=== PATIENT | female | born 1945 | race Caucasian/White ===

== ENCOUNTER 2022-09-12 05:59 | Inpatient (IN) ==
--- NOTE | 2022-09-07 14:20 | Anesthesiology Consultation ---
Date of Service September 07, 2022 Assessment & Plan (1) Encounter for pre-operative examination: Chart Review Chart Review: Patient NOT seen in Pre Admission Testing COVID screening: Per PAT nursing assessment on 09/06/22, No known COVID-19 positive contacts or current COVID-19 related symptoms. Travel screen negative. Patient vaccinated for Covid. At surgeon discretion if preop Covid testing being done. Consults Requested Pending: - most recent PCP note (per chart review, pt was seen 08/2022), re: fasting glucose on preop labs: 111; pt 'prediabetic' per RN phone interview (no diabetic meds in med list). - most recent cardio note (per chart review, pt was seen for 'preop clearance' by cardio 06/2022). per chart review, this was already faxed for. History Surgery Operation Date: 09/12/22 13:25 Proposed Procedures p C3-C4 Anterior Cervical Discectomy and Fusion, Spinal Cord Monitoring - Kevin Schmitt, Height/Weight Height: 5 ft 7.75 in Weight: 105.687 kg Allergies Allergy/AdvReac Type Severity Reaction Status Date / Time acetaminophen [From Vicodin] AdvReac itching Verified 09/06/22 15:43 codeine AdvReac itching Verified 09/06/22 15:43 hydrocodone [From Vicodin] AdvReac itching Verified 09/06/22 15:43 Medications Home Medications Medication Instructions Recorded Confirmed Last Taken Bifidobacterium infantis 4 mg 4 mg PO QPM 09/06/22 09/06/22 Unknown capsule (Align) azelastine 137 mcg (0.1 %) nasal 2 spray intranasal BID 09/06/22 09/06/22 Unknown spray aerosol buspirone 5 mg tablet 5 mg PO BID PRN Anxiety 09/06/22 09/06/22 Unknown celecoxib 200 mg capsule (Celebrex) 200 mg PO QPM 09/06/22 09/06/22 Unknown cyanocobalamin (vitamin B-12) 1,000 mcg PO QAM 09/06/22 09/06/22 Unknown 1,000 mcg tablet (Vitamin B-12) epinastine 0.05 % eye drops 1 drp ophthalmic (eye) Q12H 09/06/22 09/06/22 Unknown famotidine 40 mg tablet 40 mg PO QAM 09/06/22 09/06/22 Unknown fluticasone propionate 50 2 inh inhalation QPM 09/06/22 09/06/22 Unknown mcg/actuation blister powder for inhalation hydrochlorothiazide 12.5 mg tablet 12.5 mg PO QAM 09/06/22 09/06/22 Unknown levothyroxine 100 mcg tablet 100 mcg PO QAM 09/06/22 09/06/22 Unknown loratadine 5 mg-pseudoephedrine ER 1 tab PO Q12H 09/06/22 09/06/22 Unknown 120 mg tablet,extended release,12hr (Claritin-D 12 Hour) lutein 1 cap PO QPM 09/06/22 09/06/22 Unknown montelukast 10 mg tablet 10 mg PO PM 09/06/22 09/06/22 Unknown multivitamin 1 tab PO QAM 09/06/22 09/06/22 Unknown oxybutynin chloride 10 mg 10 mg PO QPM 09/06/22 09/06/22 Unknown tablet,extended release 24 hr temazepam 15 mg capsule 15 mg PO HS PRN Insomnia 09/06/22 09/06/22 Unknown Past Medical History Medical History (Updated 09/07/22 @ 14:24 by Beatriz Mills PA-C) Abnormal EKG while hospitalized at [facility] following fall 01/2022 -- referred to [facility] (had recent echo, stress test and pulmonary function testing. final diagnosis?) Anxiety Alexis's cyst of knee Rt Endometriosis Fracture of lumbar spine hx GERD (gastroesophageal reflux disease) History of anesthesia reaction memory loss -- "unable to remember phone numbers" -- following D&C in 1980s per pt History of duodenal ulcer History of skin cancer HTN (hypertension) Hypothyroidism Menieres disease Mild to moderate hearing loss Osteoarthritis Overactive bladder Prediabetes Right bundle branch block Spinal stenosis Torn meniscus Rt knee Uterine fibroid Past Family History Family History Mother PONV (postoperative nausea and vomiting) Past Surgical History Surgical History History of arthroscopy of right knee History of bunionectomy of right great toe History of colonoscopy History of cystoscopy History of D&C History of esophagogastroduodenoscopy (EGD) History of Mohs micrographic surgery for skin cancer x4 STOP BANG Total 6 Social History Smoking Status: Never smoker Do You Dip or Chew Tobacco: No Hx Alcohol Use: Yes alcohol intake frequency: holidays/special occasions only Alcohol Intake Frequency Comment: "rarely" Hx Substance Use: No substance use type: does not use Lab Results Anesthesia Preop Results Results Anesthesia Widget: WBC 6.15 K/ul (4.8-10.8) 08/09/22 Hgb 14.0 g/dl (12.0-16.0) 08/09/22 Hct 41.3 % (37.0-47.0) 08/09/22 Plt 254 K/uL (130-400) 08/09/22 Na 140 mmol/L (136-145) 08/09/22 K 4.2 mmol/L (3.5-5.1) 08/09/22 Cl 105 mmol/L (98-107) 08/09/22 CO2 29 mmol/L (21-32) 08/09/22 BUN 15 mg/dl (6-23) 08/09/22 Creat 0.79 mg/dl (0.6-1.2) 08/09/22 Fasting Glucose 111 mg/dl (70-99) H 08/09/22 PT 10.9 Seconds (9.0-12.0) 08/09/22 PTT 27.1 Seconds (21.0-31.0) 08/09/22 INR 1.0 (0.9-1.1) 08/09/22 Urine Color Yellow 08/09/22 Urine Appearance Clear (Clear) 08/09/22 Urine pH 5.5 (4.5-7.5) 08/09/22 Urine Specific [place] 1.007 (1.000-1.030) 08/09/22 Urine Protein Negative (Negative) 08/09/22 Urine Glucose (UA) Negative (Negative) 08/09/22 Urine Ketones Negative (Negative) 08/09/22 Urine Blood Negative (Negative) 08/09/22 Urine Nitrite Negative (Negative) 08/09/22 Urine Bilirubin Negative (Negative) 08/09/22 Urine Urobilinogen Negative (Negative) 08/09/22 Urine Leukocyte Esterase Negative (Negative) 08/09/22 Blood Type O Positive 08/09/22 Antibody Screen NEGATIVE 08/09/22 Testing Electrocardiogram Date: 08/09/22 Findings: + NSR @ (82bpm) low voltage QRS. RBBB Chest X-Ray Date: 08/09/22 Findings: + NAD Echocardiogram Date: 05/29/22 EF: 55-60% LV Function: normal mild TR. Borderline pulm HTN (Est RVSP: 26-31mmHg) No DD. Stress Test Date: 05/29/22 Lexiscan Nuclear Stress Test: Based on EKG criteria, test is non-diagnostic. Based upon nuclear imaging findings, there is NO evidence of myocardial ischemia or infarction.
[2022-09-12] MEDS ORDERED: ceFAZolin 2000MG 2,000 MG/15 ML SYR IV SCH (06:00)
[2022-09-12] MEDS ORDERED: GABAPENTIN 300 MG CAP PO SCH (06:00)
[2022-09-12] MEDS ORDERED: ACETAMINOPHEN 500 MG TAB PO SCH (06:00)
[2022-09-12] MEDS ORDERED: CeleBREX 200 MG CAP PO SCH (06:00)
[2022-09-12] MEDS ORDERED: LR 15ML/HR IV SCH (06:00)
[2022-09-12] MEDS ORDERED: MIDAZOLAM HCL 1 MG/ML 2ML VIAL ONE (07:06)
[2022-09-12] MEDS ORDERED: PROPOFOL IV EMULSION 10 MG/ML 20 ML VIAL IV ONE (07:06)
[2022-09-12] MEDS ORDERED: fentaNYL citrate PF 100 MCG/2 ML VIAL ONE (07:06)
[2022-09-12] MEDS ORDERED: LIDOCAINE 2% MPF LOCAL 5 ML VIAL INFIL ONE (07:06)
[2022-09-12] MEDS ORDERED: ONDANSETRON INJ 2 MG/ML 2 ML VIAL ONE (07:06)
[2022-09-12] MEDS ORDERED: DEXAMETHASONE SOD INJ 4 MG/ML VIAL ONE (07:06)
[2022-09-12] MEDS ORDERED: ROCURONIUM BROMIDE 10 MG/ML 5 ML VIAL IV ONE (07:06)
[2022-09-12] MEDS ORDERED: ceFAZolin 330 MG/ML 1 GM VIAL ONE (07:18)
--- NOTE | 2022-09-12 07:38 | History & Physical Bridge Note ---
Date of Service September 12, 2022 History & Physical Bridge Note I have examined the patient, reviewed the History & Physical and in the interval since the performance of the History & Physical I have noted the following changes of clinical significance: no changes noted
--- NOTE | 2022-09-12 07:39 | History & Physical Report ---
Date of Service September 12, 2022 Assessment & Plan (1) Cervical stenosis of spinal canal: Plan: C3-C4 anterior cervical discectomy and fusion History of Present Illness Chief Complaint: Neck and arm pain Primary Care Provider: Melina Floyd DO This is a 77-year-old female who presents with worsening neck and arm symptoms after failing course of nonoperative care she is here for surgical invention. Allergies Allergy/AdvReac Type Severity Reaction Status Date / Time acetaminophen [From Vicodin] AdvReac itching Verified 09/12/22 06:43 codeine AdvReac itching Verified 09/12/22 06:43 hydrocodone [From Vicodin] AdvReac itching Verified 09/12/22 06:43 Home Medications Medication Instructions Recorded Confirmed Type Bifidobacterium infantis 4 mg 4 mg PO QPM 09/06/22 09/12/22 History capsule (Align) azelastine 137 mcg (0.1 %) nasal 2 spray intranasal BID 09/06/22 09/12/22 History spray aerosol buspirone 5 mg tablet 5 mg PO BID PRN Anxiety 09/06/22 09/12/22 History celecoxib 200 mg capsule (Celebrex) 200 mg PO QPM 09/06/22 09/12/22 History cyanocobalamin (vitamin B-12) 1,000 mcg PO QAM 09/06/22 09/12/22 History 1,000 mcg tablet (Vitamin B-12) epinastine 0.05 % eye drops 1 drp ophthalmic (eye) Q12H 09/06/22 09/12/22 History famotidine 40 mg tablet 40 mg PO QAM 09/06/22 09/12/22 History fluticasone propionate 50 2 inh inhalation QPM 09/06/22 09/12/22 History mcg/actuation blister powder for inhalation hydrochlorothiazide 12.5 mg tablet 12.5 mg PO QAM 09/06/22 09/12/22 History levothyroxine 100 mcg tablet 100 mcg PO QAM 09/06/22 09/12/22 History loratadine 5 mg-pseudoephedrine ER 1 tab PO Q12H 09/06/22 09/12/22 History 120 mg tablet,extended release,12hr (Claritin-D 12 Hour) lutein 1 cap PO QPM 09/06/22 09/12/22 History montelukast 10 mg tablet 10 mg PO PM 09/06/22 09/12/22 History multivitamin 1 tab PO QAM 09/06/22 09/12/22 History oxybutynin chloride 10 mg 10 mg PO QPM 09/06/22 09/12/22 History tablet,extended release 24 hr temazepam 15 mg capsule 15 mg PO HS PRN Insomnia 09/06/22 09/12/22 History Past Med/Surg History Medical History (Updated 09/12/22 @ 07:39 by Kevin Schmitt DO) Abnormal EKG while hospitalized at [facility] following fall 01/2022 -- referred to [facility] (had recent echo, stress test and pulmonary function testing. final diagnosis?) Anxiety Alexis's cyst of knee Rt Endometriosis Fracture of lumbar spine hx GERD (gastroesophageal reflux disease) History of anesthesia reaction memory loss -- "unable to remember phone numbers" -- following D&C in per pt History of duodenal ulcer History of skin cancer HTN (hypertension) Hypothyroidism Menieres disease Mild to moderate hearing loss Osteoarthritis Overactive bladder Prediabetes Right bundle branch block Spinal stenosis Torn meniscus Rt knee Uterine fibroid Surgical History History of arthroscopy of right knee History of bunionectomy of right great toe History of colonoscopy History of cystoscopy History of D&C History of esophagogastroduodenoscopy (EGD) History of Mohs micrographic surgery for skin cancer x4 Family History Mother PONV (postoperative nausea and vomiting) Social History Smoking Status: Never smoker Second Hand Exposure: Yes (hx); Do You Dip or Chew Tobacco: No; Hx Alcohol Use: Yes Hx Substance Use: No Preferred Language: Kyrgyz Communication Ability: Effective Yarn Examiner Skeins Required: No Beliefs That Will Affect Care: None Current Living Situation: Alone Feels Safe at Home: Yes Safety Concerns: Feels Safe At This Time Assistive Devices: Glasses Assistive Devices Comment: upper perm bridge. Physical Exam Physical Exam: Patient is alert and oriented Heart regular rhythm Lungs clear Results & Data Results & Data Vital Signs (Past 12 Hours) Vital Signs Temp Pulse Resp BP Pulse Ox O2 Del Method 09/12/22 06:51 36.9 C 98 H 20 146/83 H 97 Room Air
[2022-09-12] MEDS ORDERED: ATROPINE SULFATE 0.1 MG/ML 10ML SYR IV PRN (08:31)
[2022-09-12] MEDS ORDERED: ONDANSETRON INJ 2 MG/ML 2 ML VIAL IV PRN ×2 (08:31→10:59)
[2022-09-12] MEDS ORDERED: fentaNYL citrate PF 100 MCG/2 ML VIAL IV PRN (08:31)
[2022-09-12] MEDS ORDERED: PROMETHAZINE HCL 12.5 MG in SODIUM CHLORIDE 0.9% 50 ML IV PRN ×2 (08:31→10:59)
[2022-09-12] MEDS ORDERED: ePHEDrine sulfate 50 MG/ML AMP IV PRN (08:31)
[2022-09-12] MEDS ORDERED: HYDROmorphone INJ 2 MG/ML SYR/VIAL IV PRN (08:31)
[2022-09-12] MEDS ORDERED: FLOSEAL HEMOSTATIC MATRIX 10ML TOP ONE (08:42)
--- NOTE | 2022-09-12 09:09 | Operative Report ---
Post Operative Report Pre & Post Diagnosis Operation Date: 09/12/22 07:45 Pre-Op Diagnosis: Cervical spinal stenosis with myeloradiculopathy Post-Op Diagnosis: Same I identified the patient and participated in the time-out.: Yes Procedure Operation Date: 09/12/22 07:45 Actual Procedures #1 anterior cervical discectomy with bilateral foraminotomies C3-C4. #2 anterior cervical arthrodesis C3-C4. #3 placement of Spira 9 mm cage filled with I factor C3-C4. #4 placement of K2 M plate and screws across C3-C4. Surgeon Kevin Schmitt, Social Media Designer Marilyn Franklin Estimated Blood Loss 20 Findings Consistent with Post-Op Diagnosis Specimens None Indications This is a 77-year-old female who presents above-mentioned diagnosis and is here for decompression fusion. Description of Procedure Patient patient was met with identified informed consent obtained. Patient was then taken to the operative suite underwent a patient placed in a supine position on the Jama table with head Gaston headwaitress. All bony prominences well-padded eyes inspected to ensure no external pressure placed upon the. This point the anterior cervical spine was prepped and draped in normal sterile fashion. With the assistance of fluoroscopy identified the C3-C4 disc base and a transverse incision was placed along the right anterior aspect of the cervical spinal lines region. Blunt dissection with assistance of bipolar cautery performed down to and exposing the anterior cervical spine at C3-C4. A self-retaining retractors placed. Then performed a complete discectomy of C3-C4 out to the uncovertebral joints bilaterally. [place] distraction pins were utilized to assist in visualization. Then removed all posterior annular fibers longitudinal limit bilateral foraminotomies performed. Endplates burred to subcortical bleeding bone and the 9 mm Spira cage with I factor tapped in position. Distracting apparatus was removed a K2 M plate and screws applied with the assistance of fluoroscopy. The incision was then copiously irrigated explored to ensure no damage to surrounding structures or remaining bleeding. 10 round VALERI drain inserted. The incision was then closed with 2 Vicryl in the fashion of 4 Monocryl for final skin closure. Steri-Strip sterile dressings placed. Patient waken taken to PACU in stable condition. Please note spinal cord monitoring was utilized at the procedure no changes noted. Lastly Marilyn Franklin was present at the entire surgery involved the patient positioning complex portions of the surgery and final skin closure. I attest to the content of the Intraoperative Record and any orders documented therein. Any exceptions are noted below.
[2022-09-12] MEDS ORDERED: SUGAMMADEX SODIUM 200 MG/2 ML VIAL IV ONE (09:15)
--- NOTE | 2022-09-12 09:51 | Fluoroscopy Report ---
FL cervical 2-3V CLINICAL HISTORY: ACDF C3-C4 TECHNIQUE: 2 views were obtained with the C-arm in the OR with the above procedure. Total fluoroscopy time was 11.3 seconds. Radiation dose was 1.75 mGy. Comparison: None available at the time of this dictation. FINDINGS/IMPRESSION: Intraoperative images were obtained of ACDF of C3-C4. Please correlate with intraoperative fluoroscopy and operative report. ACT 112: Negative or not required by law. Electronically signed by: Lobito Vasquez M.D. 09/12/2022 9:49 AM
[2022-09-12] MEDS ORDERED: hydrOXYzine HCl 25 MG TAB PO PRN (10:59)
[2022-09-12] MEDS ORDERED: NALOXONE HCL 0.4 MG/1 ML VIAL/CARP IV PRN (10:59)
[2022-09-12] MEDS ORDERED: LORazepam 0.5 MG TAB PO PRN (10:59)
[2022-09-12] MEDS ORDERED: busPIRone 5 MG TAB PO PRN (10:59)
[2022-09-12] MEDS ORDERED: bisacodyL 10 MG SUPP PR PRN (10:59)
[2022-09-12] MEDS ORDERED: MAGNESIUM HYDROXIDE SUSP 30 ML UDC PO PRN (10:59)
[2022-09-12] MEDS ORDERED: HYDROmorphone INJ 1 MG/ML SYRINGE IV PRN (10:59)
[2022-09-12] MEDS ORDERED: dexAMETHasone 8 MG in SYRINGE 0 ML IV PRN (10:59)
[2022-09-12] MEDS ORDERED: FAMOTIDINE 20 MG TAB PO PRN (10:59)
[2022-09-12] MEDS ORDERED: diphenhydrAMINE Capsule 25 MG CAP PO PRN (10:59)
[2022-09-12] MEDS ORDERED: SOD PHOSPHATE/SOD BIPHOSPHATE ENEMA 132 ML BTL PR PRN (10:59)
[2022-09-12] MEDS ORDERED: DO NOT ADMINISTER FLU VACCINE PRN (10:59)
[2022-09-12] MEDS ORDERED: TEMAZEPAM 15 MG CAPSULE PO PRN (10:59)
[2022-09-12] MEDS ORDERED: ALUMINUM/MAGNESIUM SUSP 30 ML UDC PO PRN (10:59)
[2022-09-12] MEDS ORDERED: METOCLOPRAMIDE HCL INJ 5 MG/ML 2 ML VIAL IV PRN (10:59)
[2022-09-12] MEDS ORDERED: DO NOT ADMINISTER PNEUMOCOCCAL VACCINE PRN (10:59)
[2022-09-12] MEDS ORDERED: ONDANSETRON 4 MG OD TAB PO PRN (10:59)
[2022-09-12] MEDS ORDERED: RACEPINEPHRINE 2.25% NEBU SOLN 0.5 ML VIAL INH PRN (10:59)
[2022-09-12] MEDS ORDERED: ACETAMINOPHEN 1,000 MG/100 ML VIAL IV PRN (10:59)
[2022-09-12] MEDS ORDERED: LORazepam 2 MG/1 ML VIAL IV PRN (10:59)
[2022-09-12] MEDS ORDERED: ACETAMINOPHEN 500 MG TAB PO PRN (10:59)
[2022-09-12] MEDS ORDERED: HYDROmorphone INJ 0.5 MG/0.5 ML SYR IV PRN (10:59)
[2022-09-12] MEDS ORDERED: oxyCODONE HCL IR 5 MG TAB (IMMEDIATE RELEASE) PO PRN (10:59)
[2022-09-12] MEDS: SODIUM CHLORIDE 0.9% 1000ML 1,000 ML IV SCH ×3 (11:11→23:38)
--- NOTE | 2022-09-12 11:18 | Anesthesiology Progress Note ---
Date of Service September 12, 2022 Anesthesia Post Procedure Vital Signs Vital Signs: Temp Pulse Pulse Resp BP Pulse Ox O2 Del Method 09/12/22 10:40 36.3 C L 82 14 168/94 H 96 Nasal Cannula 09/12/22 10:30 82 14 171/100 H 96 Nasal Cannula 09/12/22 10:20 80 14 166/103 H 96 Nasal Cannula 09/12/22 10:10 78 16 159/97 H 96 Nasal Cannula 09/12/22 10:00 82 14 162/95 H 99 Nasal Cannula 09/12/22 09:50 83 17 170/91 H 94 Nasal Cannula 09/12/22 09:40 83 16 169/94 H 97 Nasal Cannula 09/12/22 09:30 88 14 148/97 H 90 Room Air 09/12/22 09:26 36.1 C L 88 16 156/83 H 91 Room Air 09/12/22 06:51 36.9 C 98 H 20 146/83 H 97 Room Air O2 Flow Rate 09/12/22 10:40 2 09/12/22 10:30 2 09/12/22 10:20 2 09/12/22 10:10 2 09/12/22 10:00 2 09/12/22 09:50 2 09/12/22 09:40 2 09/12/22 09:30 09/12/22 09:26 09/12/22 06:51 Pain Intensity Neck: Pain Intensity: 4 Transfer of Care Handoff Completed per policy Notes Mental Status: alert / awake / arousable and participated in evaluation Patient Amnestic to Procedure: Yes Nausea / Vomiting: adequately controlled Pain: adequately controlled Airway Patency, RR, SpO2: stable & adequate BP & HR: stable & adequate Hydration State: stable & adequate Anesthetic Complications: no major complications apparent
[2022-09-12] MEDS: traMADol HCL 50 MG TABLET PO PRN (11:42)
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
[2022-09-12] MEDS: dexAMETHasone 6 MG in SYRINGE 0 ML IV SCH ×2 (12:37→20:39)
[2022-09-12] MEDS: ceFAZolin 2000MG 2,000 MG/15 ML SYR IV SCH ×2 (15:12→23:38)
[2022-09-12] MEDS: DOCUSATE SODIUM/SENNA 50/8.6MG TAB PO SCH (20:39)
[2022-09-12] MEDS: OXYBUTYNIN CHLORIDE XL 5 MG TABCR PO SCH (20:39)
[2022-09-12] MEDS: AZELASTINE HCL 0.1% NASAL 200 SPRAYS/27,400 MCG BTL SCH (20:39)
[2022-09-12] MEDS: ADVANCED PROBIOTIC 1250 MG CAPSULE PO SCH (20:39)
[2022-09-12] MEDS: MONTELUKAST SODIUM 10 MG TABLET PO SCH (20:39)
[2022-09-12] MEDS ORDERED: [UNRECOGNIZED DRUG - MIXTURE] INH SCH (21:00)
[2022-09-12] MEDS ORDERED: NON-FORMULARY MEDICATION (Lutein 1 CAP) PO SCH (21:00)
[2022-09-12] MEDS ORDERED: CHLORASEPTIC 1.4% SOLN 180 ML BTL MT PRN (22:50)
[2022-09-13] MEDS: dexAMETHasone 6 MG in SYRINGE 0 ML IV SCH (04:15)
[2022-09-13] MEDS: POLYETHYLENE (MIRALAX) 17 GM PACK PO SCH ×3 (06:00→17:23)
[2022-09-13] MEDS: LEVOTHYROXINE SODIUM 100 MCG TABLET PO SCH (06:00)
--- NOTE | 2022-09-13 08:23 | Orthopedic Progress Note ---
Date of Service September 13, 2022 Assessment & Plan (1) Cervical stenosis of spinal canal: Plan: Bharti is POD #1 ACDF C3-4. We will have her evaluated by physical therapy today. Ambulate ad peace with walker. Maintain VALERI drain today. Continue use of cervical coolar at all times except when eating/bathing. Anticipate discharge home tomorrow Admission and Anticipated Discharge Date Admission Date: September 12, 2022 Subjective Bharti is POD #1 s/p ACDF C3-4. She had an uneventful evening. SHe denies dysphonia or dysphagia. She states she has no change in her upper extremity symptoms, but her lower extremities feel stronger and with less pain. She is up and walking around her room. Review of Systems Review of Systems: All systems reviewed & are unremarkable except as noted in HPI & below Physical Exam Physical Exam: A&Ox3 sitting in chair in no acute distress [place] J collar intact. Dressing C/D/I strength unchanged upper and lower extremities Results & Data Vital Signs (Past 12 Hours) Vital Signs Temp Pulse Resp BP BP Pulse Ox Pulse Ox 09/13/22 07:24 09/13/22 07:00 96 09/13/22 07:00 85 16 97 09/13/22 06:15 36.8 C 74 16 131/76 97 09/13/22 04:15 36.4 C L 80 18 127/75 98 09/13/22 03:25 70 17 96 09/13/22 02:15 36.4 C L 78 16 126/75 97 09/12/22 20:20 09/13/22 00:15 36.4 C L 77 18 139/81 96 09/12/22 23:37 117 H 18 96 09/12/22 22:15 36.6 C 82 18 135/84 96 09/12/22 20:20 36.9 C 90 18 135/82 94 O2 Del Method O2 Del Method O2 Flow Rate O2 Flow Rate 09/13/22 07:24 Room Air 09/13/22 07:00 Room Air 2 09/13/22 07:00 Room Air 09/13/22 06:15 Room Air 09/13/22 04:15 Nasal Cannula 1 09/13/22 03:25 Nasal Cannula 1 09/13/22 02:15 Nasal Cannula 2 09/12/22 20:20 Nasal Cannula 2 03/22/23 00:15 Nasal Cannula 2 09/12/22 23:37 Room Air 09/12/22 22:15 Nasal Cannula 2 09/12/22 20:20 Nasal Cannula 2
[2022-09-13] MEDS ORDERED: hydroCHLOROthiazide 25 MG TAB PO SCH (09:00)
[2022-09-13] MEDS: AZELASTINE HCL 0.1% NASAL 200 SPRAYS/27,400 MCG BTL SCH ×2 (09:03→20:17)
[2022-09-13] MEDS: MULTIVITAMIN TAB PO SCH (09:04)
[2022-09-13] MEDS: CYANOCOBALAMIN (B-12) 500 MCG TABLET PO SCH (09:04)
[2022-09-13] MEDS: FAMOTIDINE 40 MG TABLET PO SCH (09:04)
[2022-09-13] MEDS: traMADol HCL 50 MG TABLET PO PRN (14:35)
--- NOTE | 2022-09-13 18:50 | Hospitalist Progress Note ---
Date of Service September 13, 2022 Assessment & Plan (1) Cervical stenosis of spinal canal: Plan: Cervical spinal stenosis with myeloradiculopathy -S/P 1 anterior cervical discectomy with bilateral foraminotomies C3-C4. #2 anterior cervical arthrodesis C3-C4. #3 placement of Spira 9 mm cage filled with I factor C3-C4. #4 placement of K2 M plate and screws across C3-C4. on 09/12/22 by -Maintain VALERI drain as per surgery Pain control Bowel regimen to prevent constipation Monitor for postop anemia Advance diet as tolerated DVT prophylaxis as per primary team (2) HTN (hypertension): Plan: -Outpt EKG was abnormal so pt underwent stress echo on 05/29/22 which was normal Follows with [facility] Blood pressure slightly elevated--situational versus secondary to steroids Previously on HCTZ Monitor BP (3) Anxiety: Plan: - Does not take buspirone regularly, last time she used this was probably a mo nth ago. No acute issues (4) GERD (gastroesophageal reflux disease): Plan: - Continue Pepcid (5) Hypothyroidism: Plan: - Continue levothyroxine DVT px: As per primary team CODE STATUS: Full code Admission and Anticipated Discharge Date Admission Date: September 12, 2022 Subjective Patient is seen and examined at bedside Denies any significant pain at surgical site Reports some tingling sensation in hands Denies any chest pain, dyspnea, dizziness, nausea, abdominal pain Review of Systems Review of Systems: All systems reviewed & are unremarkable except as noted in Subjective Physical Exam Physical Exam: Physical Exam: Vitals signs as noted above General Appearance:Obese, no apparent distress Head: normocephalic, Atraumatic Eyes: normal inspection, EOMI Neck: supple, Trachea midline, + neck collar, drain Respiratory/Chest: Normal breath sounds, CTA, No accessory muscle use Cardiovascular: S1, S2, No murmur Abdomen/GI:Soft, Non tender, Bowel sounds present Extremities/Musculoskeletal:normal inspection, Trace edema Neurologic/Psych:AAOX3, grossly no focal neurological deficits Skin: normal color, warm Results & Data Results & Data Vital Signs (Past 12 Hours) Vital Signs Temp Pulse Resp BP BP Pulse Ox Pulse Ox 09/13/22 15:00 95 09/13/22 13:00 97 09/13/22 14:32 36.9 C 82 18 143/82 H 98 09/13/22 11:57 36.7 C 73 18 123/78 99 09/13/22 11:00 80 18 96 09/13/22 11:00 95 09/13/22 09:00 96 09/13/22 07:24 09/13/22 07:00 96 09/13/22 07:00 85 16 97 O2 Del Method O2 Del Method 09/13/22 15:00 Room Air 09/13/22 13:00 Room Air 09/13/22 14:32 Room Air 09/13/22 11:57 Room Air 09/13/22 11:00 Room Air 09/13/22 11:00 Room Air 09/13/22 09:00 Room Air 09/13/22 07:24 Room Air 09/13/22 07:00 Room Air 09/13/22 07:00 Room Air
[2022-09-13] MEDS: ADVANCED PROBIOTIC 1250 MG CAPSULE PO SCH (20:17)
[2022-09-13] MEDS: MONTELUKAST SODIUM 10 MG TABLET PO SCH (20:17)
[2022-09-13] MEDS: OXYBUTYNIN CHLORIDE XL 5 MG TABCR PO SCH (20:17)
[2022-09-13] MEDS: DOCUSATE SODIUM/SENNA 50/8.6MG TAB PO SCH (20:17)
[2022-09-14] MEDS: POLYETHYLENE (MIRALAX) 17 GM PACK PO SCH ×2 (00:19→06:56)
[2022-09-14] MEDS: LEVOTHYROXINE SODIUM 100 MCG TABLET PO SCH (06:35)
[2022-09-14 08:00] LABS: Hematocrit (blood only) 39.5 % (37.0-47.0); Hemoglobin 13.1 g/dl (12.0-16.0); Mean Corpuscular Hemoglobin 30.3 pg (25.0-34.0); Mean Corpuscular Hgb Conc 33.2 g/dL (32.0-36.0); Mean Corpuscular Volume 91.4 fL (80.0-100.0); Mean Platelet Volume 10.2 fL (9.4-12.4); Platelet Count 303 K/uL (130-400); RDW Coefficient of Variation 12.9 % (11.5-14.5); RDW Standard Deviation 43.7 fL (36.4-46.3); Red Blood Count 4.32 M/uL (4.20-5.40); White Blood Count 10.83 K/ul (4.8-10.8)
[2022-09-14 08:07] LABS: BUN Creatinine Ratio 23.2 (10-20); Calcium 9.8 mg/dl (8.6-10.3); Creatinine Clr Calc Pharmacy 74.3 ml/min; Est GFR (African American) 81.1 ml/min; Potassium 4.8 mmol/L (3.5-5.1)
--- NOTE | 2022-09-14 08:17 | Discharge Summary ---
Date of Service September 14, 2022 Admission HPI Per Admitting Provider This is a 77-year-old female who presents with worsening neck and arm symptoms after failing course of nonoperative care she is here for surgical invention. Principal Diagnosis Cervical myeloradiculopathy Discharge Data Allergies Allergy/AdvReac Type Severity Reaction Status Date / Time acetaminophen [From Vicodin] AdvReac itching Verified 09/12/22 06:43 codeine AdvReac itching Verified 09/12/22 06:43 hydrocodone [From Vicodin] AdvReac itching Verified 09/12/22 06:43 Consultations 09/12/22 10:59 Consult Hospitalist Routine Procedures Performed Operation Date: 09/12/22 07:45 Actual Procedures p C3-C4 Anterior Cervical Discectomy and Fusion, Spinal Cord Monitoring(Not Applicable) - Kevin Schmitt DO Ordered Studies 09/12/22 07:45 FL cervical 2-3V Routine Hospital Course (1) Cervical stenosis of spinal canal: Patient underwent anterior cervical discectomy fusion C3-C4. She tolerated this well stable orthopedic for postop labor postop and when she was up and ambulating progressed to postop day #2. Swallowing well. No hoarseness. Leg symptoms improved noting some modest improvement of her arm symptoms. Specific instructions discharge home. Discharge orders instructions on the chart for further review. Total Time Total Time Spent Total Time Spent (In Minutes): 20 minutes Discharge Plan Discharge Items Patient Disposition: Home - Self-Care Reason For Visit: Spinal Stenosis, Cervical Region Discharge Diagnosis: Cervical spinal stenosis with myelopathy Activity: As commented below Non-emergency contact: Primary Care Provider Call non-emergency contact if: you have any medication questions Follow-up/Referrals: Melina Floyd DO [Primary Care Provider] - Diet: Regular Addtl Attending Provider Instructions: ACTIVITY RECOMMENDATIONS: SELF CARE INSTRUCTIONS AFTER CERVICAL FUSIONS 1. No smoking. Smoking drastically decreases the chance of a solid fusion. 2. No bending, lifting more than 5 pounds, or twisting (roll like a log when turning in bed). 3. You may shower 3 days after surgery. Thoroughly dry wound. Do not soak in the tub. 4. Cervical collar: Must be worn at all times including sleeping. You may remove the brace only to bath, eat and if you are sitting in a recliner. 5. Please walk as much as you can for exercise. Gradually increase the distance that you walk as your endurance increases. SPECIAL CARE INSTRUCTIONS: VERY IMPORTANT TO READ AND REVIEW A. Do not take any anti-inflammatory medications (i.e. Indocin, Advil, Aspirin, Naprosyn, Aleve, Motrin, etc.) as these may inhibit the chance of a solid fusion. Tylenol is okay to take. B. Your surgical incision has been closed with a cosmetic suture under the skin that will dissolve in about 6 weeks. In 14 days, you can use a pair of clean scissors and cut the suture that is left outside of the skin at the ends of your incision. C. Complications are uncommon, but please contact us if you have any signs or symptoms of: 1. wound infection (fever higher than 102.5 degrees F, redness, separation of wound, drainage, or increasing pain from the incision) 2. blood clots in legs (pain, swelling, redness and warmth in legs) 3. urinary tract infection (fever higher than 102.5 degrees, burning upon urination or increased frequency of urination) 4. nerve problems (inability to walk on your toes or heels, numbness, loss of bowel or bladder control) 5. any other symptoms that concern you. D. Please call the office at if you have any concerns or questions about your operation or recovery. MANAGING PAIN AFTER SPINAL SURGERY 1. Narcotic medication is intended for short-term use and will be provided for surgical pain. Surgical pain usually lasts for a period of 4-6 weeks. Narcotic medication includes Percocet, Vicodin, Darvocet, Tylenol #3 or Lortab. 2. Longer-term pain is more appropriately treated with non-narcotic medication such as Tylenol ES. 3. Muscle spasm is not appropriately treated with narcotics. Muscle relaxers such as Soma, Flexeril or Skelaxin can be used along with Tylenol ES. 4. Remember that we all live with some "aches and pains". This is not unusual or uncommon after an injury or as we get older. 5. We will provide appropriate medication within the normal guidelines of their prescribed use. We will also be very cautious and aware of potential abuse and extended duration of patients' medication needs. 6. Please allow 2-3 days to process refills. Prescriptions will not be mailed but must be picked up at the office. FOLLOW UP VISIT: Keep your scheduled follow-up appointment. Any questions, please call the office at . Pending Studies at Discharge: No Stand-Alone Forms: [facility], Smoking Cessation Medications and DC Order Prescriptions: New tramadol 50 mg tablet 50 mg PO Q6H PRN (Reason: pain, moderate) Qty: 20 0RF oxycodone 5 mg tablet 5 mg PO Q6H PRN (Reason: pain, severe) Qty: 20 0RF Continued multivitamin Tablet 1 tab PO QAM buspirone 5 mg Tablet 5 mg PO BID PRN (Reason: Anxiety) fluticasone propionate 50 mcg/actuation Blister With Device 2 inh INHALATION QPM oxybutynin chloride 10 mg Tablet Extended Release 24hr 10 mg PO QPM famotidine 40 mg Tablet 40 mg PO QAM cyanocobalamin (vitamin B-12) [Vitamin B-12] 1,000 mcg Tablet 1,000 mcg PO QAM levothyroxine 100 mcg Tablet 100 mcg PO QAM temazepam 15 mg Capsule 15 mg PO HS PRN (Reason: Insomnia) Claritin-D 12 Hour 5-120 mg Tablet Extended Release 12 Hr 1 tab PO Q12H montelukast 10 mg Tablet 10 mg PO PM azelastine 137 mcg (0.1 %) Aerosol,Greer 2 spray INTRANASAL BID Rx Instructions: administer into each nostril epinastine 0.05 % Drops 1 drp OPHTHALMIC (EYE) Q12H Align 4 mg Capsule 4 mg PO QPM lutein 1 cap PO QPM Discontinued celecoxib [Celebrex] 200 mg Capsule 200 mg PO QPM Discharge Orders: Discharge Order (Routine); Ordered 09/14/22 Ordered By: Kevin Schmitt Admission Data Admit Date/Time: 09/12/22 09:12 Attending Provider: Kevin Schmitt Admit Provider: Kevin Schmitt Primary Care Provider: Melina Floyd Other Providers: Tanna Arzate ; Lisa Sharp ; Christiano Parikh
[2022-09-14] MEDS: CYANOCOBALAMIN (B-12) 500 MCG TABLET PO SCH (08:26)
[2022-09-14] MEDS: FAMOTIDINE 40 MG TABLET PO SCH (08:26)
[2022-09-14] MEDS: MULTIVITAMIN TAB PO SCH (08:26)
[2022-09-14] MEDS: AZELASTINE HCL 0.1% NASAL 200 SPRAYS/27,400 MCG BTL SCH (08:27)
--- NOTE | 2022-09-14 17:52 | Hospitalist Progress Note ---
Date of Service September 14, 2022 Assessment & Plan (1) Cervical stenosis of spinal canal: Plan: Cervical spinal stenosis with myeloradiculopathy -S/P 1 anterior cervical discectomy with bilateral foraminotomies C3-C4. #2 anterior cervical arthrodesis C3-C4. #3 placement of Spira 9 mm cage filled with I factor C3-C4. #4 placement of K2 M plate and screws across C3-C4. on 09/12/22 by -Maintain VALERI drain as per surgery Pain control Bowel regimen to prevent constipation Monitor for postop anemia Tolerating diet DVT prophylaxis as per primary team Plan to be discharged home today (2) HTN (hypertension): Plan: -Outpt EKG was abnormal so pt underwent stress echo on 05/29/22 which was normal Follows with [facility] Blood pressure slightly elevated--situational versus secondary to steroids Previously on HCTZ Monitor BP Advised to follow-up with PCP as outpatient (3) Anxiety: Plan: - Does not take buspirone regularly, last time she used this was probably a month ago. No acute issues (4) GERD (gastroesophageal reflux disease): Plan: - Continue Pepcid (5) Hypothyroidism: Plan: - Continue levothyroxine DVT px: As per primary team CODE STATUS: Full code Admission and Anticipated Discharge Date Admission Date: September 12, 2022 Subjective Patient is seen and examined at bedside States feeling much better today No new complaints Plan to discharge home today Still has tingling sensation in bilateral upper extremities Denies any chest pain, dyspnea, dizziness, nausea, abdominal pain Review of Systems Review of Systems: All systems reviewed & are unremarkable except as noted in Subjective Physical Exam Physical Exam: Physical Exam: Vitals signs as noted above General Appearance:Obese, no apparent distress Head: normocephalic, Atraumatic Eyes: normal inspection, EOMI Neck: supple, Trachea midline, + neck collar, drain Respiratory/Chest: Normal breath sounds, CTA, No accessory muscle use Cardiovascular: S1, S2, No murmur Abdomen/GI:Soft, Non tender, Bowel sounds present Extremities/Musculoskeletal:normal inspection, Trace edema Neurologic/Psych:AAOX3, grossly no focal neurological deficits Skin: normal color, warm Results & Data Results & Data Vital Signs (Past 12 Hours) Vital Signs Temp Pulse Resp BP BP Pulse Ox Pulse Ox 09/14/22 11:32 96 09/14/22 10:06 36.6 C 74 16 126/77 144/84 H 96 09/14/22 07:37 36.6 C 74 16 126/77 96 O2 Del Method O2 Flow Rate 09/14/22 11:32 0 09/14/22 10:06 09/14/22 07:37 Room Air Laboratory Results Short CBC 09/14/22 Range/Units 07:11 WBC 10.83 H (4.8-10.8) K/ul Hgb 13.1 (12.0-16.0) g/dl Hct 39.5 (37.0-47.0) % Plt Count 303 (130-400) K/uL BMP 09/14/22 07:11 Sodium 142 Potassium 4.8 Chloride 104 Carbon Dioxide 33 H BUN 19 Creatinine 0.82 Glucose 109 H Calcium 9.8
== END 2022-09-14 14:09 | disposition home or self-care (01) | DRG 472 ==
LOC: ASU 05:59 → 3E 09:12